=== PATIENT | male | born 1945 | race Hispanic/Latino ===

== ENCOUNTER 2023-02-17 13:12 | Observation (INO) | payer OTHER ==
[~2023-02-17] VITALS: Ht 172.7 cm; Wt 87.9 kg
[2023-02-17] VITALS (18 sets, daily range): BP systolic 119–149; BP diastolic 62–78; PULSE 63–85; RESP 12–20; O2SAT 100
[2023-02-17] MEDS ORDERED: MORPHINE 4 MG SYG IVP ONE (15:00)
[2023-02-17] MEDS ORDERED: ONDANSETRON 4MG INJ IVP ONE (15:00)
[2023-02-17] MEDS ORDERED: HYDROMORPHONE 1 MG INJ ONE (16:06)
[2023-02-17 16:22] LABS: BASOPHILS # (AUTO) 0.04 K/uL (0.00-0.20); BASOPHILS % (AUTO) 0.4 % (0.0-5.0); EOSINOPHILS # (AUTO) 0.17 K/uL (0.00-0.70); EOSINOPHILS % (AUTO) 1.9 % (0.0-8.0); HEMATOCRIT 33.2 % (42-54); IMMATURE GRANULOCYTE ABSOLUTE 0.04 K/uL (0-1); MEAN CORPUSCULAR HEMOGLOBIN 31.4 pg (27.0-33.0); MEAN CORPUSCULAR HGB CONC 32.8 g/dL (32.0-36.0); MEAN CORPUSCULAR VOLUME 95.7 fL (79-99); MONOCYTES # (AUTO) 0.7 K/uL (0.1-1.0); MONOCYTES % (AUTO) 7.5 % (3.0-13.0); NEUTROPHILS # (AUTO) 7.2 K/uL (1.8-7.7); NEUTROPHILS % (AUTO) 78.8 % (40.0-77.0); PLATELET COUNT (AUTO) 176 K/uL (130-400); RED BLOOD CELL COUNT(AUTO) 3.47 MIL/uL (4.50-6.20); RED CELL DISTRIBUTION WIDTH 12.4 % (11.0-15.5); WHITE BLOOD COUNT (AUTO) 9.2 K/uL (4.8-10.8)
[2023-02-17 16:30] LABS: CREATININE 1.2 mg/dL (0.5-1.5); POTASSIUM 4.1 mmol/L (3.5-5.1)
[2023-02-17] MEDS ORDERED: HYDROMORPHONE 1 MG INJ IVP ONE (16:30)
[2023-02-17 16:32] LABS: INR 0.94 (0.85-1.15); PROTHROMBIN TIME 10.9 SEC (9.6-11.6)
[2023-02-17 16:33] LABS: PARTIAL THROMBOPLASTIN TIME 29.1 SEC (26.3-35.5)
[2023-02-17 16:35] LABS: ALBUMIN 3.6 g/dL (3.5-5.0); BILIRUBIN,TOTAL 0.3 mg/dL (0.2-1.0); TOTAL PROTEIN, SERUM 7.5 g/dL (6.0-8.3)
[2023-02-17] MEDS ORDERED: ACETAMINOPHEN 500 MG TABLET PO PRN (18:00)
[2023-02-17] MEDS: CEFTRIAXONE 1G VIAL IVPB SCH (18:00)
[2023-02-17] MEDS ORDERED: ONDANSETRON 4MG INJ IVP PRN (18:00)
[2023-02-17] MEDS ORDERED: TAMS-1 PO (19:38)
[2023-02-17] MEDS ORDERED: DUTA0.5C37 PO (19:38)
[2023-02-17] MEDS ORDERED: METO25TA6 PO (19:38)
[2023-02-17] MEDS ORDERED: CRAN1CAP5 PO (19:38)
[2023-02-17] MEDS ORDERED: LIDOCAINE PF 100MG/5ML (2%) SYRINGE 5ML ONE (19:52)
[2023-02-17] MEDS ORDERED: MIDAZOLAM HCL 1 MG/ML 2ML VIAL ONE (19:53)
[2023-02-17] MEDS ORDERED: FENTANYL CITRATE PF 50 MCG/1 ML 2ML VIAL ONE (19:53)
[2023-02-17] MEDS ORDERED: PROPOFOL 10 MG/ML 20ML VIAL IV ONE (19:53)
[2023-02-17] MEDS ORDERED: DEXAMETHASONE SOD PHOSPHATE 4 MG/ML 1ML VIAL ONE (19:53)
[2023-02-17] MEDS ORDERED: ONDANSETRON 4MG INJ ONE (19:54)
[2023-02-17] MEDS ORDERED: NEOMY SULF/BACITRAC ZN/POLY OINT 30GM TUBE TP ONE (20:48)
[2023-02-17] MEDS ORDERED: BACITRACIN 28.4 GM OINT TP ONE (20:51)
[2023-02-17] MEDS: PYRIDOSTIGMINE BROMIDE 60 MG TABLET PO SCH (21:42)
[2023-02-17] MEDS: METOPROLOL TARTRATE 25 MG TAB PO SCH (21:42)
[2023-02-17] MEDS: 0.9%NACL 1000ML 1,000 ML IV SCH (21:42)
[2023-02-18] VITALS (12 sets, daily range): BP systolic 113–154; BP diastolic 50–93; PULSE 66–102; RESP 16–20; O2SAT 97–100
[2023-02-18 05:42] LABS: BASOPHILS # (AUTO) 0.01 K/uL (0.00-0.20); BASOPHILS % (AUTO) 0.1 % (0.0-5.0); EOSINOPHILS # (AUTO) 0.01 K/uL (0.00-0.70); EOSINOPHILS % (AUTO) 0.1 % (0.0-8.0); HEMATOCRIT 32.9 % (42-54); IMMATURE GRANULOCYTE ABSOLUTE 0.04 K/uL (0-1); LYMPHOCYTES # (AUTO) 0.6 K/uL (1.0-4.8); LYMPHOCYTES % (AUTO) 6.7 % (21.0-51.0); MEAN CORPUSCULAR HEMOGLOBIN 31.6 pg (27.0-33.0); MEAN CORPUSCULAR HGB CONC 32.5 g/dL (32.0-36.0); MEAN CORPUSCULAR VOLUME 97.1 fL (79-99); MONOCYTES # (AUTO) 0.3 K/uL (0.1-1.0); MONOCYTES % (AUTO) 3.5 % (3.0-13.0); NEUTROPHILS # (AUTO) 7.4 K/uL (1.8-7.7); NEUTROPHILS % (AUTO) 89.1 % (40.0-77.0); PLATELET COUNT (AUTO) 191 K/uL (130-400); RED BLOOD CELL COUNT(AUTO) 3.39 MIL/uL (4.50-6.20); RED CELL DISTRIBUTION WIDTH 12.3 % (11.0-15.5); WHITE BLOOD COUNT (AUTO) 8.3 K/uL (4.8-10.8)
[2023-02-18 06:45] LABS: ALBUMIN 3.3 g/dL (3.5-5.0); BILIRUBIN,TOTAL 0.4 mg/dL (0.2-1.0); TOTAL PROTEIN, SERUM 6.9 g/dL (6.0-8.3)
[2023-02-18] MEDS: 0.9%NACL 1000ML 1,000 ML IV SCH (07:20)
[2023-02-18] MEDS: BACITRACIN 1 EACH PACKET TP SCH ×2 (08:57→19:23)
[2023-02-18] MEDS: METOPROLOL TARTRATE 25 MG TAB PO SCH ×2 (08:57→19:21)
[2023-02-18] MEDS: TAMSULOSIN HCL 0.4 MG CAP.ER.24H PO SCH (08:57)
[2023-02-18] MEDS: PYRIDOSTIGMINE BROMIDE 60 MG TABLET PO SCH ×2 (08:57→19:21)
[2023-02-18] MEDS ORDERED: CRANBERRY EXTRACT PO SCH (09:00)
[2023-02-18] MEDS ORDERED: VIT C PO SCH (09:00)
[2023-02-18] MEDS ORDERED: [UNRECOGNIZED DRUG - OTHER] PO SCH (09:00)
[2023-02-18] MEDS: CEFTRIAXONE 1G VIAL IVPB SCH (17:30)
[2023-02-18] MEDS: HYDROCODONE/ACETAMINOPHEN 5/325 MG TAB PO PRN ×2 (17:37→21:55)
[2023-02-18 21:55] LABS: SARS-CoV-2, RNA, NAAT NEGATIVE SARS CoV-2 (NEGATIVE)
[2023-02-19] VITALS: BP 113/55; PULSE 61; RESP 20
[2023-02-19 03:16] LABS: BASOPHILS # (AUTO) 0.03 K/uL (0.00-0.20); BASOPHILS % (AUTO) 0.4 % (0.0-5.0); EOSINOPHILS # (AUTO) 0.21 K/uL (0.00-0.70); EOSINOPHILS % (AUTO) 2.7 % (0.0-8.0); HEMATOCRIT 29.7 % (42-54); IMMATURE GRANULOCYTE ABSOLUTE 0.04 K/uL (0-1); LYMPHOCYTES # (AUTO) 1.5 K/uL (1.0-4.8); LYMPHOCYTES % (AUTO) 19.9 % (21.0-51.0); MEAN CORPUSCULAR HEMOGLOBIN 31.4 pg (27.0-33.0); MEAN CORPUSCULAR HGB CONC 33.3 g/dL (32.0-36.0); MEAN CORPUSCULAR VOLUME 94.3 fL (79-99); MONOCYTES # (AUTO) 0.7 K/uL (0.1-1.0); MONOCYTES % (AUTO) 8.6 % (3.0-13.0); NEUTROPHILS # (AUTO) 5.2 K/uL (1.8-7.7); NEUTROPHILS % (AUTO) 67.9 % (40.0-77.0); PLATELET COUNT (AUTO) 176 K/uL (130-400); RED BLOOD CELL COUNT(AUTO) 3.15 MIL/uL (4.50-6.20); RED CELL DISTRIBUTION WIDTH 12.3 % (11.0-15.5); WHITE BLOOD COUNT (AUTO) 7.7 K/uL (4.8-10.8)
[2023-02-19 03:22] LABS: POTASSIUM 3.7 mmol/L (3.5-5.1)
[2023-02-19 04:00] VITALS: BP 118/62; PULSE 72; RESP 18
[2023-02-19 07:30] VITALS: O2SAT 98
[2023-02-19 08:00] VITALS: BP 130/67; PULSE 95; RESP 18
[2023-02-19] MEDS: PYRIDOSTIGMINE BROMIDE 60 MG TABLET PO SCH (09:19)
[2023-02-19] MEDS: TAMSULOSIN HCL 0.4 MG CAP.ER.24H PO SCH (09:19)
[2023-02-19] MEDS: METOPROLOL TARTRATE 25 MG TAB PO SCH (09:19)
[2023-02-19] MEDS: BACITRACIN 1 EACH PACKET TP SCH (09:20)
[2023-02-19 12:00] VITALS: BP 129/49; PULSE 92; RESP 18
[2023-02-19] MEDS ORDERED: CEPH500B PO (13:33)
== END 2023-02-19 15:45 | disposition home or self-care (01) ==
LOC: EDH 13:12 → INTOOBSV 17:41 → DIRECT 17:41 → 4BH 19:00
PROVIDERS: ADMIT Internal Medicine; ATTEND Internal Medicine
DX: N47.2 Paraphimosis (principal); Z20.822 Contact with and (suspected) exposure to COVID-19; N47.1 Phimosis; N40.1 Benign prostatic hyperplasia with lower urinary tract symptoms; R33.8 Other retention of urine; R31.0 Gross hematuria; I10 Essential (primary) hypertension; D64.9 Anemia, unspecified; R60.0 Localized edema; G70.00 Myasthenia gravis without (acute) exacerbation; Z79.899 Other long term (current) drug therapy
CPT/HCPCS: 96375; 93005; 54161; 99284; 83735; 80053 ×2; 85025 ×3; 85610; 85730; 36415 ×3; 93970; 96365; 87635; 80048; J1100; A4344; J3010; J2001; J2250; J2704; J2405 ×2; J2270; A4358; J0696; G0378 ×4; J1170; J3490

== ENCOUNTER 2023-03-09 10:07 | Day surgery (SDC) | payer OTHER ==
[2023-03-03 15:11] VITALS: BP 168/58; PULSE 92; RESP 20
[2023-03-03 15:13] LABS: APPEARANCE,URINE CLOUDY (CLEAR); BILIRUBIN,URINE NEGATIVE (NEGATIVE); COLOR,URINE YELLOW (YELLOW); GLUCOSE, URINE (UA) NEGATIVE (NEGATIVE); KETONES,URINE NEGATIVE (NEGATIVE); LEUKOCYTE ESTERASE ,URINE 500 Leu/uL (NEGATIVE); NITRATE,URINE 2+ (NEGATIVE); OCCULT BLOOD,URINE SMALL (NEGATIVE); PROTEIN,URINE 20 mg/dL (NEGATIVE); UROBILINOGEN,URINE 0.2 mg/dL (0.2-1.0)
[2023-03-03 15:18] LABS: BASOPHILS # (AUTO) 0.05 K/uL (0.00-0.20); BASOPHILS % (AUTO) 0.5 % (0.0-5.0); EOSINOPHILS % (AUTO) 2.1 % (0.0-8.0); HEMATOCRIT 39.1 % (42-54); IMMATURE GRANULOCYTE ABSOLUTE 0.04 K/uL (0-1); LYMPHOCYTES # (AUTO) 1.5 K/uL (1.0-4.8); LYMPHOCYTES % (AUTO) 15.3 % (21.0-51.0); MEAN CORPUSCULAR HEMOGLOBIN 31.4 pg (27.0-33.0); MEAN CORPUSCULAR VOLUME 95.1 fL (79-99); MONOCYTES # (AUTO) 0.7 K/uL (0.1-1.0); NEUTROPHILS # (AUTO) 7.2 K/uL (1.8-7.7); NEUTROPHILS % (AUTO) 74.7 % (40.0-77.0); PLATELET COUNT (AUTO) 187 K/uL (130-400); RED BLOOD CELL COUNT(AUTO) 4.11 MIL/uL (4.50-6.20); RED CELL DISTRIBUTION WIDTH 11.9 % (11.0-15.5); WHITE BLOOD COUNT (AUTO) 9.6 K/uL (4.8-10.8)
[2023-03-03 15:21] LABS: ADD UA MICROSCOPIC YES
[2023-03-03 15:50] LABS: MUCUS,URINE RARE LPF (None Seen); SQUAMOUS EPITHELIAL CELL,UR RARE /HPF (0-2); WBC,URINE 26-50 /HPF (0-1)
[2023-03-03 15:54] LABS: POTASSIUM 4.3 mmol/L (3.5-5.1)
[2023-03-03 15:57] LABS: INR 0.94 (0.85-1.15); PROTHROMBIN TIME 10.9 SEC (9.6-11.6)
[2023-03-03 15:58] LABS: PARTIAL THROMBOPLASTIN TIME 27.6 SEC (26.3-35.5)
[~2023-03-09] VITALS: Ht 167.6 cm; Wt 86.6 kg
[2023-03-09] VITALS (17 sets, daily range): BP systolic 143–164; BP diastolic 69–86; PULSE 64–93; RESP 14–16
[~2023-03-09 10:07] MED LIST: CRAN1CAP5 PO; DUTA0.5C37 PO; PYRI60TA PO; TAMS-1 PO
[2023-03-09] MEDS ORDERED: LACTATED RINGERS 1000ML 1,000 ML IV ONE (10:38)
[2023-03-09] MEDS ORDERED: MEROPENEM 1 GM VIAL ONE (10:39)
[2023-03-09] MEDS ORDERED: LIDOCAINE PF 100MG/5ML (2%) SYRINGE 5ML ONE (11:13)
[2023-03-09] MEDS ORDERED: DEXAMETHASONE SOD PHOSPHATE 10MG/ML 1ML VIAL ONE (11:13)
[2023-03-09] MEDS ORDERED: PROPOFOL 10 MG/ML 20ML VIAL IV ONE ×2 (11:14→12:13)
[2023-03-09] MEDS ORDERED: MIDAZOLAM HCL 1 MG/ML 5ML VIAL ONE (11:14)
[2023-03-09] MEDS ORDERED: ONDANSETRON 4MG INJ ONE (11:14)
[2023-03-09] MEDS ORDERED: FENTANYL CITRATE PF 50 MCG/1 ML 5ML AMP IV ONE ×2 (11:15→12:50)
[2023-03-09] MEDS ORDERED: MEPERIDINE-PF 25 MG/ML SYG ONE (11:26)
[2023-03-09] MEDS ORDERED: EPHEDRINE SULFATE 50 MG/ML AMPULE ONE (11:29)
[2023-03-09] MEDS ORDERED: BUPIVACAINE/PF 0.25% 30ML VIAL IJ ONE (11:31)
[2023-03-09] MEDS ORDERED: BACITRACIN 28.4 GM OINT TP ONE (11:52)
[2023-03-09] MEDS ORDERED: KETAMINE 50MG/ML SYRINGE 50 MG/ML DISP.SYRIN ONE (11:55)
[2023-03-09] MEDS ORDERED: DEXMEDETOMIDINE HCL 200 MCG/2 ML VIAL IV ONE (11:55)
[2023-03-09] MEDS ORDERED: LIDOCAINE HCL 400MG/20ML VIAL ONE (11:55)
[2023-03-09] MEDS ORDERED: KETOROLAC 30MG VIAL (30MG/ML) ONE (11:58)
[2023-03-09] MEDS ORDERED: FENTANYL CITRATE PF 50 MCG/1 ML 2ML VIAL ONE (13:39)
== END 2023-03-09 15:55 | disposition home or self-care (01) ==
LOC: DAH 10:07
PROVIDERS: ATTEND Urology
DX: N40.1 Benign prostatic hyperplasia with lower urinary tract symptoms (principal); R33.8 Other retention of urine; N47.2 Paraphimosis; N41.1 Chronic prostatitis; E78.5 Hyperlipidemia, unspecified; Z79.01 Long term (current) use of anticoagulants; Z79.899 Other long term (current) drug therapy; Z90.49 Acquired absence of other specified parts of digestive tract; Z98.890 Other specified postprocedural states
CPT/HCPCS: 80048; 85025; 85610; 85730; 87077; 87088; 87186; 81001; 36415; 71045; 93005; 52648; 88307; A6260; A4663; A4606; J7120; J3010 ×3; J3490 ×4; J1100; J0665; J2001; J2250; J2704 ×2; J2405; J1885; J2175; J2185; A4215; A4223; A4222; A4221; A4600

== ENCOUNTER 2023-06-27 14:51 | Emergency (ER) | payer OTHER ==
[~2023-06-27] VITALS: Ht 172.7 cm; Wt 86.2 kg
[2023-06-27 15:19] LABS: HEMATOCRIT 40.9 % (42-54); MEAN CORPUSCULAR HGB CONC 33.7 g/dL (32.0-36.0); MEAN CORPUSCULAR VOLUME 85.9 fL (79-99); RED BLOOD CELL COUNT(AUTO) 4.76 MIL/uL (4.50-6.20); RED CELL DISTRIBUTION WIDTH 12.9 % (11.0-15.5); WHITE BLOOD COUNT (AUTO) 8.8 K/uL (4.8-10.8)
[2023-06-27 15:29] LABS: CREATININE 0.9 mg/dL (0.5-1.5); POTASSIUM 3.9 mmol/L (3.5-5.1)
[2023-06-27 15:38] LABS: ALBUMIN 4.2 g/dL (3.5-5.0); BILIRUBIN,TOTAL 0.4 mg/dL (0.2-1.0); TOTAL PROTEIN, SERUM 8.3 g/dL (6.0-8.3)
[2023-06-27 21:39] VITALS: BP 160/79; PULSE 75; RESP 17; O2SAT 98
== END 2023-06-27 21:41 | disposition home or self-care (01) ==
LOC: EDH 14:51
DX: G70.00 Myasthenia gravis without (acute) exacerbation (principal); I10 Essential (primary) hypertension
CPT/HCPCS: 36415; 70450; 80053; 84484; 85027; 93005